=== PATIENT | female | born 1990 | race Caucasian/White ===

== ENCOUNTER 2024-04-09 08:19 | Outpatient (AMB) | payer OTHER, SELFPAY ==
--- NOTE | 2024-04-09 08:31 | A.OFFPC_ITS ---
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 Intake Note: New patient visit Medical Or Surgical Instrument Maker Required: No Is last menstrual period known: Yes Last menstrual period: 04/08/24 Allergies No Known Allergies Allergy (Verified 04/09/24 09:09) Medication List - Last Reconciled 04/09/24 by Johanna Rodriguez, CUT OFF [facility] [employer]- bupropion HCl XL 300 mg PO DAILY dextroamphetamine-amphetamine 25 mg ER 1 cap PO QAM Tobacco use date assessed: 04/09/24 Dental Screening Dental Screen Date: 04/09/24 Did you have a dental visit in the last 12 months?: Yes Did you have a dental problem in the last 6 months where you did not have access to dental care?: No Was dental information given to patient?: Patient has dentist HPI HPI Comments History of Present Illness Details 33 y/o F with eczema, ADHD, MDD, aniscor ia, keloid Right foot Surgery:None 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 Her ADHD and major depression is well controlled on bupropion and Adderall. She does need a counselor. She does not wear corrective lenses however reports anisocoria She is sleeping well. Maintaining a proper diet. Admits decreased physical activity since her move. Has a mole to her right upper quadrant that has grown in size of the last 3 years. Reports multiple angiomas on her face as well as scattered throughout her body that seemed to be more present over the last 2 years. Has a keloid on her right foot that was evaled by Derm in [place]. Her and has been trying to conceive. Unsuccessful for the last 1.5 years. She is active with android architect. Plan: Derm referral for eval of nevi RUQ Cont care with MAINTENANCE MECHANIC TECHNICIAN Screening labs today Cont meds; I will take over the refills on your current medications. FU in 3-4 months for ADHD MDD/med refills, sooner as needed. PFSH Medical History (Updated 04/09/24 @ 10:20 by Johanna Rodriguez [facility]) Eczema ADHD Family History (Updated 04/09/24 @ 08:38 by Saskia Shah [facility]) Mother HTN (hypertension) Ovarian cancer Father HTN (hypertension) Maternal Grandmother Diabetes Cardiovascular disease Maternal Grandfather Diabetes Paternal Grandfather Breast cancer Social History (Updated 04/09/24 @ 08:32 by Saskia Shah CMA) Housing: House Patient Tobacco Use Status: Never used Tobacco e-Cigarette/Vaping Use: Never Used Second Hand Smoke Exposure: No service: No Current occupational status: employed 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 1. Little interest or pleasure in doing things: not at all 2. Feeling down, depressed, or hopeless: several days 3. Trouble falling or staying asleep, or sleeping too much: not at all 4. Feeling tired or having little energy: several days 5. Poor appetite or overeating: several days 6. Feeling bad about yourself - or that you are a failure or have let yourself or your family down: several days 7. Trouble concentrating on things, such as reading the newspaper or watching television: several days 8. Moving or speaking so slowly that other people could have noticed. Or the opposite - being so fidgety or restless that you have been moving around a lot more than usual: not at all 9. Thoughts that you would be better off or of hurting yourself in some way: not at all Total score: 5 Depression Screening Interpretation: Positive Depression Screening Follow-up: Existing condition Depression Screening Done: Yes 61715 - PHQ-9 Billing: Yes Source: Developed by Drs. Isaac Naik, Deidra Barlow, Hardy Conteh and colleagues, with an educational ernesto from [employer]. Thrive Questionnaire Date Thrive assessed: 04/09/24 I am a: Patient What is your living situation today?: I have a steady place to live Within the past 12 months, did the food you bought not last and you didn't have the money to get more?: Never true Within the past 12 months, did you worry whether your food would run out before you got money to buy more?: Never true Do you have trouble paying for medicines?: No Do you have trouble getting transportation to medical appointments?: No Do you have trouble paying your heating and electricity bill?: No Do you have trouble taking care of your child, family member or friend?: No Do you have trouble with day-to-day activities such as bathing, preparing meals, shopping, managing finances, etc.?: No Are you currently unemployed and looking for a job?: No Are you interested in more education?: Yes Please select the resources that you would like help with: Education Currently or been in a relationship where the following occur: No concerns reported THRIVE Score: 0 AUDIT C Alcohol Use Questionnaire (AUDIT-C) 1. How often do you have a drink containing alcohol?: Monthly or less 2. How many drinks containing alcohol do you have on a typical day when you are drinking?: 1 or 2 3. How often do you have six or more drinks on one occasion?: Never Total Score: 1 Score Reviewed/Action Taken: Yes LASHELL-7 AMB Questionnaire LASHELL-7 Date LASHELL - 7 assessed: 04/09/24 Feeling nervous, anxious, or on edge: 1 = Several days Not being able to stop or control worryin = Not at all Worrying too much about different things: 0 = Not at all Trouble relaxin = Several days Being so restless that it is hard to sit still: 0 = Not at all Becoming easily annoyed or irritable: 1 = Several days Feeling afraid as if something awful might happen: 0 = Not at all Total LASHELL-7 score (0-4 normal; 5-9 mild; 10-14 moderate; 15-21 severe): 3 Source: Developed by Drs. Isaac Naik, Deidra Barlow, Hardy Conteh and colleagues, with an educational ernesto from [employer]. LASHELL-7 Assessment Billing LASHELL-7 Assessment Tool: LASHELL-7 Assessment 03685 Physical exam (Primary Care) Tobacco/Smoking Status: Tobacco use Status Tobacco use date assessed 04/09/24 04/09/24 08:33 Patient Tobacco Use Status Never used Tobacco 04/09/24 08:33 e-Cigarette/Vaping Use Never Used 04/09/24 08:33 Depression Screening Interpretation: Positive Depression Screening Follow-up: Existing condition Currently or been in a relationship where the following occur: No concerns reported Const Other: General: Well developed, well nourished, in no acute distress. Appears stated age. Head: Normocephalic, atraumatic. Eyes: Aniscoria R>L (congenital), otherwise normal reaction and accomodation, EOMI, Conjunctivae are clear. Vision grossly normal. Ears: TMs clear AU, EACS WNL Nose: Patent, without discharge. Mouth: There are no ulcers or lesions noted. No inflammation, no post nasal drip, no plaques nor exudates. Neck: Supple, no adenopathy or thyromegaly. Lungs: Clear to auscultation bilaterally. No rales, rhonchi or wheeze noted. Good air flow in all colón. Heart: Regular rate and rhythm. No murmurs, click, rubs or gallops are noted. Abdomen: Bowel sounds present in all quadrants. The abdomen is soft, nontender, with no masses or organomegaly noted. No hernias are noted. Musculoskeletal: Joints are nontender, without swelling, redness, or effusions. Range of motion is observed to be normal. Pulses: Peripheral pulses are equal and palpable bilaterally. Extremities: No clubbing, cyanosis nor edema is noted. Neurologic: Gait and station normal. Cranial Nerves 2-12 intact. Motor strength grossly symmetrical and intact. No sensory loss. Balance normal. Skin: No rashes, ulcers noted. Turgor is good. Skin color is good. Hair and nails are without abnormalities. RUQ flesh colored raised nevi, regular borders, oblong, scattered morales angiomas, round raised keloid dorsum R foot Psych: Normal eye contact, affect and mood appropriate, and normal interactions. Patient is alert and appropriate to context. Assessment and Plan Assessment & Plan (1) Encounter for general adult medical examination without abnormal findings: Code(s): Z00.00 - Encounter for general adult medical examination without abnormal findings (2) Laboratory examination ordered as part of a routine general medical examination: Code(s): Z00.00 - Encounter for general adult medical examination without abnormal findings (3) Atypical nevi: Comment: RUQ Code(s): D22.9 - Melanocytic nevi, unspecified (4) MDD (major depressive disorder), recurrent episode: Code(s): F33.9 - Major depressive disorder, recurrent, unspecified Qualifiers: Major depression episode severity: mild Qualified Code(s): F33.0 - Major depressive disorder, recurrent, mild (5) 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 Panel Today Z00.00 - Encounter for general adult medical examination without abnormal findings Microalbumin, Random (w Creat) Today Z00.00 - Encounter for general adult medical examination without abnormal findings LDL Cholesterol Direct Today Z00.00 - Encounter for general adult medical examination without abnormal findings Hemoglobin A1c Today Z00.00 - Encounter for general adult medical examination without abnormal findings TSH reflex Free T4 Today Z00.00 - Encounter for general adult medical examination without abnormal findings Vitamin D 25-OH Total Today Z00.00 - Encounter for general adult medical examination without abnormal findings Referrals Dermatology Referral D22.9 - Melanocytic nevi, unspecified Patient Instructions: Hemanth Fernandes [phone] Counselor call to schedule appt Walk-In Care (Urgent Care): We Make it Easy Walk-in for urgent medical issues such as: ? Seasonal Allergies ? Insect Bites ? Cough ? Diarrhea ? Acute Asthma Attacks ? Back, Knee or Joint Pain ? Ear Infection ? Fever without a Rash ? Headaches ? Nausea ? [place] [facility], Rash or Skin Irritation ? Sore Throat ? Sports Physicals ? Vomiting Most insurances are accepted. Patients do not need to be part of the [facility] to seek care at the walk-in clinic. Locations [facility] [address], [place] [address] ? [phone] [facility] in [place] provides services to ages 18 and over. Open Tuesday-Tuesday: 8 a.m. to 5 p.m. and Tuesday: 9 a.m. to 3 p.m.* *Hours may vary due to staffing availability. To confirm Walk-In Care hours in [place], please call [phone]. [address] [place] [address] ? [phone] [facility] in [place] provides services to ages 12 and over. Open Tuesday-Tuesday: 8 a.m. to 5 p.m. Hours may vary due to staffing availability. To confirm Walk-In Care hours in [place], please call [phone]. LABORATORY SERVICES: [facility] Lab ? Primary Location [address] [place] [address] Tuesday through Tuesday 6:00 AM ? 5:00 PM Tuesday 7:00 AM ? 11:00 AM* [phone] The [facility] Lab is centrally located near the front entrance of the [facility] for easy outpatient access. Convenient parking is provided for outpatients. *Hours may vary due to staffing availability. To confirm Laboratory hours for any location, please call [phone]. Offsite Location For your convenience, we offer offsite laboratory draw stations at the following locations: [address] [place] [address] ? [address], [address] Tuesday through Tuesday 7:30 AM ? 1:00 PM* [phone] *Hours may vary due to staffing availability. To confirm Laboratory hours for any location, please call [phone]. [place] ? [address] Tuesday through Tuesday 6:00 AM ? 3:30 PM* Tuesday 6:30 AM ? 3 PM* [phone] *Hours may vary due to staffing availability. To confirm Laboratory hours for any location, please call [phone] [place] [address] Tuesday through Tuesday 7:30 AM ? 4:00 PM* [phone] *Hours may vary due to staffing availability. To confirm Laboratory hours for any location, please call [phone] [place] [address] Tuesday through 9:00 AM ? 4:00 PM* *Hours may vary due to staffing availability. To confirm Laboratory hours for any location, please call [phone]. Appointments are not necessary. Walk-ins are welcome. Like all the departments throughout the [facility], our Lab undergoes frequent reviews to ensure the quality and accuracy of test results, and our staff takes special pride in its status as a nationally accredited facility. Patient Portal: ONE PATIENT. ONE RECORD. BETTER CARE. [facility] has a fully integrated, cutting- edge mobile electronic health information system that has revolutionized the way we care for our patients and manage our organization. This system improves communication and coordination enabling us to provide safe, higher-quality care, and an overall positive experience for staff and patients. Our first priority, as always, is to deliver the highest quality care possible. The system is running in the background supporting that priority. This portal is for all [facility] and [facility] services and practices. If you are experiencing any technical difficulties with enrolling or logging into the Patient Portal please complete the [facility] Patient Portal Technical Support Form. [facility] now offers a new secure on-line interactive tool for patients to review their health information ? ?Patient Portal. This interactive web portal will enable patients and their families to take an active role in their care by providing easy, secure access to their health information via the internet. The Patient Portal provides patients with instant access to their health information, including laboratory results, medications, allergies, demographic information, visit history, and more. In addition to managing their own care, parents and health care proxies with authorized consent will appreciate the ability to access the records of those individuals for whom they provide care. Please note: if you wish to gain access (Proxy) to another patient?s portal, you will be required to come to the Medical Records Department in person at [facility]. Both the patient giving proxy access and the proxy will need to provide photo identification and complete the appropriate authorization. The Patient Portal also allows track their appointments online. The [facility] Patient Portal also saves patients time by allowing them to submit updates to their demographic and contact information prior to their visits. Portal email notifications will also alert patients to any new activity on their portal, such as test results and new appointments. In order to initially enroll in the [facility] Patient Portal, you will need to enter some required information including the following: * your [facility] Medical Record number * your personal home email address * name * date of Please note: In order to enroll in the [facility] Patient Portal, we need to have your email address on file in your electronic medical record. ?The email address needs to be specific for one person (yourself) in order for your Portal enrollment to be successful. ?You can update your email address in person with our Registration staff when you are registering for a hospital visit. ?Otherwise, you will need to come to the Health Information Management (Medical Records) Department at [facility]. ?We are open from Tuesday ? Tuesday from 7:30 a.m. ? 4:30 p.m. ?You will be required to present a photo id. Once you have successfully enrolled in the Patient Portal, you will receive a one-time user id and password for the Portal, sent to your email address. ?This will allow you to log into the Patient Portal within 99 hrs and reset your own logon id and password, and define personal security questions. ?Once your permanent login and password have been set, you can log into the [facility] Patient Portal at any time via the blue button above or from the Portal Logon button on any page of the [facility] website. [facility] and [facility] encourage all of our patients to enroll in Patient Portal as it presents a valuable opportunity for patients and their families to actively participate in their care and stay healthy Welcome to [facility]. ?We look forward to working with you. Health screenings for women You should visit your health care provider from time to time, even if you are healthy. The purpose of these visits is to: Screen for medical issues Assess your risk for future medical problems Encourage a healthy lifestyle Update vaccinations and other preventive care services Help you get to know your provider in case of an illness Information Even if you feel fine, you should still see your provider for regular checkups. These visits can help you avoid problems in the future. For example, the only way to find out if you have high blood pressure is to have it checked regularly. High blood sugar and high cholesterol levels also may not have any symptoms in the early stages. A simple blood test can check for these conditions. There are specific times when you should see your provider or receive specific health screenings. The [place] Preventive Services Task Force publishes a list of recommended screenings. Below are screening guidelines for women ages 18 to 39. BLOOD PRESSURE SCREENING Your blood pressure should be checked at least once every 3 to 5 years if: Your blood pressure is in the normal range (top number less than 120 mm Hg and bottom number less than 80 mm Hg) You don't have risk factors for high blood pressure Ask your provider if you need your blood pressure checked more often if: The top number is 120 to 129 mm Hg or the bottom number is 70 to 79 mm Hg You have diabetes, heart disease, kidney problems, are overweight, or have certain other health conditions You have a first-degree relative with high blood pressure You are Black You had high blood pressure during a If the top number is 130 mm Hg or greater or the bottom number is 80 mm Hg or greater, this is considered stage 1 hypertension. Schedule an appointment with your provider to learn how you can reduce your blood pressure. Watch for blood pressure screenings in your area. Ask your provider if you can stop in to have your blood pressure checked. BREAST CANCER SCREENING Experts do not agree about the benefits of breast self-exams in finding breast cancer or saving lives. Talk to your provider about what is best for you. A screening mammogram is not recommended for most women under age 40. Your provider may discuss and recommend mammograms, MRI scans, or ultrasounds if you have an increased risk for breast cancer, such as: A mother or sister who had breast cancer at a young age (most often starting screening earlier than the age the close relative was diagnosed) You carry a high-risk genetic marker CERVICAL CANCER SCREENING Cervical cancer screening should start at age 21 years unless your provider advises otherwise. After the first test: Women ages 21 through 29 should have a Pap test every 3 years. Exoprts do not agree on whether HPV testing is recommended for this age group. Women ages 30 through 65 should be screened with either a Pap test every 3 years or the HPV test every 5 years or both tests every 5 years (called cotesting ). Women who have been treated for precancer (cervical dysplasia) should continue to have Pap tests for 20 years after treatment or until age 65, whichever is longer. If you have had your uterus and cervix removed (total hysterectomy), and you have not been diagnosed with cervical cancer or precancer (high grade cervical neoplasia), you do not need cervical cancer screening. CHOLESTEROL SCREENING Cholesterol screening should begin at: Age 45 for women with no known risk factors for coronary heart disease Age 20 for women with known risk factors for coronary heart disease Repeat cholesterol screening should take place: Every 5 years for women with normal cholesterol levels More often if changes occur in lifestyle (including weight gain and diet) More often if you have diabetes, heart disease, kidney problems, or certain other conditions DIABETES SCREENING You should be screened for diabetes starting at age 35 and then repeated every 3 years if you have no risk factors for diabetes. Screening may need to start earlier and be repeated more often if you have other risk factors for diabetes, such as: You have a first degree relative with diabetes. You are overweight or have obesity. You have high blood pressure, prediabetes, or a history of heart disease. Screening for diabetes should be done if you are planning to become and you are overweight and have other risk factors such as high blood pressure. DENTAL EXAM Go to the dentist once or twice every year for an exam and cleaning. Your dentist will evaluate if you need more frequent visits. EYE EXAM Have an eye exam every 5 to 10 years before age 40. If you have vision problems, have an eye exam every 2 years or more often if recommended by your provider. You should have an eye exam that includes an examination of your retina (back of your eye) at least every year if you have diabetes. IMMUNIZATIONS Commonly needed vaccines include: Flu shot: get one every year. COVID-19 vaccine: ask your provider what is best for you. Tetanus-diphtheria and acellular pertussis (Tdap) vaccine: have one at or after age 19 as one of your tetanus-diphtheria vaccines if you did not receive it as an adolescent. Tetanus-diphtheria: have a booster (or Tdap) every 10 years. Varicella vaccine: receive 2 doses if you never had chickenpox or the varicella vaccine. Hepatitis B vaccine: receive 2, 3, or 4 doses, depending on your exact circumstances. Measles, mumps, and rubella (MMR) vaccine: receive 1 to 2 doses if you are not already immune to MMR. Your provider can tell you if you are immune. Ask your provider about the human papillomavirus (HPV) vaccine if: You have not received the HPV vaccine in the past You have not completed the full vaccine series (you should catch up on this shot) Ask your provider if you should receive other immunizations if you have certain health problems that increase your risk for some diseases such as pneumonia. INFECTIOUS DISEASE SCREENING Women who are sexually active should be screened for chlamydia and gonorrhea up until age 25. Women 25 years and older should be screened for chlamydia and gonorrhea if at high risk. Screening for hepatitis C: All adults ages 18 to 79 should get a one-time test for hepatitis C. people should be screened at every . Screening for human immunodeficiency virus (HIV): All people ages 15 to 65 should get a one-time test for HIV. Depending on your lifestyle and medical history, you may also need to be screened for infections such as syphilis and HIV, as well as other infections. PHYSICAL EXAM All adults should visit their provider from time to time, even if they are healthy. The purpose of these visits is to: Screen for disease Assess your risk of future medical problems Encourage a healthy lifestyle Update your vaccinations and other preventive care services Maintain a relationship with a provider in case of an illness Your height, weight, and BMI should be checked at every exam. During your exam, your provider may ask you about: Depression and anxiety Diet and exercise Alcohol and tobacco use Safety issues, such as using seat belts, smoke detectors, and intimate partner violence Your medicines and risk for interactions SKIN SELF-EXAM Your provider may check your skin for signs of skin cancer, especially if you're at high risk, such as if you: Have had skin cancer before Have close relatives with skin cancer Have a weakened immune system OTHER SCREENING Talk with your provider about colon cancer screening if you have a strong family history of colon cancer or polyps, or if you have had inflammatory bowel disease or polyps yourself. Routine bone density screening of women under 40 is not recommended. 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
[2024-04-09 09:05] VITALS: BP 118/72; PULSE 100; RESP 12; TEMP 36.8; O2SAT 99; BMI 28.3
== END 2024-04-09 09:31 | disposition home or self-care (01) ==
PROVIDERS: PCP Hospitalist; Visit Provider Nurse Practitioner Family
DX: Z00.00 Encounter for general adult medical examination without abnormal findings (principal); D22.9 Melanocytic nevi, unspecified; F33.0 Major depressive disorder, recurrent, mild; Q13.2 Other congenital malformations of iris
CPT/HCPCS: 99385

== ENCOUNTER 2024-04-09 09:47 | Outpatient (REF) | payer OTHER, SELFPAY ==
[2024-04-09 11:30] LABS: Estimated Average Glucose 91 mg/dL; Hemoglobin A1c % 4.8 % (<6.0)
[2024-04-09 11:38] LABS: Alanine Aminotransferase 23 U/L (0-31); Albumin Level 4.7 g/dL (3.5-5.0); Alkaline Phosphatase 65 U/L (39-117); Anion Gap 13 (12-20); Aspartate Amino Transferase 21 U/L (5-31); Bilirubin Total 0.6 mg/dL (0.0-1.0); Blood Urea Nitrogen 15 mg/dL (9-16); Calcium 9.7 mg/dL (8.4-10.2); Carbon Dioxide 26 mmol/L (22-29); Chloride 103 mmol/L (96-108); Estimated Glomerular Filt Rate > 60; Glucose Random 94 mg/dL (60-115); Potassium 3.9 mmol/L (3.3-5.1); Sodium 138 mmol/L (135-145); Total Protein 7.1 g/dL (6.5-8.0)
[2024-04-09 11:50] LABS: Creatinine Urine 201.77 mg/dL; Microalbum/Creatinine Ratio Ur 10.9 ug/mg cr (<30)
[2024-04-09 11:56] LABS: Vitamin D 25-OH Total 44.4 ng/mL (>30)
[2024-04-10 13:54] LABS: LDL Cholesterol Direct 90 mg/dL (<100)
== END 2024-04-09 09:48 | disposition home or self-care (01) ==
LOC: HO.WFDLDS 09:47
PROVIDERS: Visit Provider Nurse Practitioner Family
DX: Z00.00 Encounter for general adult medical examination without abnormal findings (principal); Z13.1 Encounter for screening for diabetes mellitus; Z13.89 Encounter for screening for other disorder
CPT/HCPCS: 36415; 80053; 82043; 82306; 82570; 83036; 83721; 84443

== ENCOUNTER 2024-07-10 08:27 | Outpatient (AMB) | payer OTHER, SELFPAY ==
--- NOTE | 2024-07-10 08:36 | A.OFFPC_ITS ---
Vital Signs 07/10/24 08:38 Height 5 ft 6 in Weight 161 lb 4 oz BMI 26.0 BP 118/70 Blood Pressure Location Lt brachial Position Sitting Respiration 14 Pulse 71 Pulse Source Pulse Oximeter Pulse Oximetry (%) 98 Oxygen Delivery Method Room Air Intake Visit Reasons: 3-4 months fu ADHD MDD Intake Note: follow up on adhd meds Allergies No Known Allergies Allergy (Verified 07/10/24 08:50) Medication List - Last Reconciled 07/10/24 by ZOE Oconnor bupropion HCl XL 300 mg PO DAILY 90 days dextroamphetamine-amphetamine 25 mg ER 1 cap PO QAM dextroamphetamine-amphetamine 5 mg 1 tab PO DAILY Tobacco use date assessed: 04/09/24 Dental Screening Dental Screen Date: 04/09/24 HPI HPI Comments History of Present Illness Details 33 y/o F with eczema, ADHD, MDD, aniscor ia, keloid Right foot Surgery:None 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 ADHD symptoms are well controlled on current medications. Her appetite is good. Weight is stable. Sleeping well. Denies any abdominal pain or palpitations. MDD symptoms are stable. She is currently undergoing infertility treatment. Recently had an appointment, told everything looks good so far, we will need to undergo further testing. She also has returned to school with a goal to be, ENVIRONMENTAL MANAGEMENT SPECIALIST. Despite this, she feels like she has a good support system and is doing well on bupropion. Derm - I do not have a consult note however she reports that she did see Dermatology and mole is fine. Exam: Awake alert NAD Aniscoria R>L (congenital) RRR LS CTAB WT is stable. VS reviewed today. Today is more accurate. Plan: Continue all medications as currently prescribed. She does have an Adderall 5 mg IR that she takes as needed in the afternoon on days that she works. She does not currently need this refilled. Return to the office in 3 months for med check and refill, sooner as needed Patient is aware they are being prescribed a controlled substance. They were educated that this medication does require routine monthly office visits to monitor weight, blood pressure, heart rate and to screen for any signs of abuse or misuse. They were educated that they may be subject to random pill counts and/or U tox screenings. The prescription drug monitoring program we will be monitored at each visit to further screen for signs of abuse or misuse to inc lude filling prescriptions at other physician's offices. The patient should maintain prescription refills of the same local pharmacy and advised the provider of any changes immediately. If at any time there is a concern for abuse or misuse or if there are any signs of side effects such as elevated blood pressure, elevated heart rate or weight loss patient is made aware that this medication will be discontinued. The patient is aware of the above and is willing to proceed. This note is constructed using voice recognition software. While every effort has been made to ensure accuracy in newspaper copy editor, still errors may have been included Sometimes, these errors may affect the content or meaning of the given sentence . Total time spent caring for the patient today was 30 minutes. This includes time spent before the visit reviewing the chart, time spent during the visit, and time spent after the visit on documentation PFSH Medical History (Updated 07/10/24 @ 09:03 by Johanna Rodriguez [facility]) Eczema ADHD Family History (Updated 04/09/24 @ 08:38 by Saskia Shah CMA) Mother HTN (hypertension) Ovarian cancer Father HTN (hypertension) Maternal Grandmother Diabetes Cardiovascular disease Maternal Grandfather Diabetes Paternal Grandfather Breast cancer Social History (Updated 04/09/24 @ 08:32 by Saskia Shah CMA) Housing: House Patient Tobacco Use Status: Never used Tobacco e-Cigarette/Vaping Use: Never Used Second Hand Smoke Exposure: No service: No Current occupational status: employed 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 1. Little interest or pleasure in doing things: several days 2. Feeling down, depressed, or hopeless: several days 3. Trouble falling or staying asleep, or sleeping too much: not at all 4. Feeling tired or having little energy: several days 5. Poor appetite or overeating: not at all 6. Feeling bad about yourself - or that you are a failure or have let yourself or your family down: several days 7. Trouble concentrating on things, such as reading the newspaper or watching television: several days 8. Moving or speaking so slowly that other people could have noticed. Or the opposite - being so fidgety or restless that you have been moving around a lot more than usual: not at all 9. Thoughts that you would be better off or of hurting yourself in some way: not at all Total score: 5 16723 - PHQ-9 Billing: Yes Source: Developed by Drs. Isaac Naik, Deidra Barlow, Hardy Conteh and colleagues, with an educational ernesto from [employer]. Thrive Questionnaire Date Thrive assessed: 07/10/24 I am a: Patient What is your living situation today?: I have a steady place to live Within the past 12 months, did the food you bought not last and you didn't have the money to get more?: Never true Within the past 12 months, did you worry whether your food would run out before you got money to buy more?: Never true Do you have trouble paying for medicines?: No Do you have trouble getting transportation to medical appointments?: No Do you have trouble paying your heating and electricity bill?: No Do you have trouble taking care of your child, family member or friend?: No Do you have trouble with day-to-day activities such as bathing, preparing meals, shopping, managing finances, etc.?: No Are you currently unemployed and looking for a job?: No Are you interested in more education?: Yes Please select the resources that you would like help with: None Currently or been in a relationship where the following occur: No concerns reported THRIVE Score: 0 AUDIT C Alcohol Use Questionnaire (AUDIT-C) 1. How often do you have a drink containing alcohol?: 2-4 times a month 2. How many drinks containing alcohol do you have on a typical day when you are drinking?: 1 or 2 3. How often do you have six or more drinks on one occasion?: Never Total Score: 2 LASHELL-7 AMB Questionnaire LASHELL-7 Date LASHELL - 7 assessed: 07/10/24 Feeling nervous, anxious, or on edge: 1 = Several days Not being able to stop or control worryin = Several days Worrying too much about different things: 1 = Several days Trouble relaxin = Several days Being so restless that it is hard to sit still: 0 = Not at all Becoming easily annoyed or irritable: 1 = Several days Feeling afraid as if something awful might happen: 1 = Several days Total LASHELL-7 score (0-4 normal; 5-9 mild; 10-14 moderate; 15-21 severe): 6 Source: Developed by Drs. Isaac Naik, Deidra Barlow, Hardy Conteh and colleagues, with an educational ernesto from [employer]. LASHELL-7 Assessment Billing LASHELL-7 Assessment Tool: LASHELL-7 Assessment 86574 Physical exam (Primary Care) Vital Signs: Last Vital Signs Pulse 71 07/10/24 08:38 Resp 14 07/10/24 08:38 BP 118/70 07/10/24 08:38 Pulse Ox 98 07/10/24 08:38 Oxygen Delivery Method Room Air 07/10/24 08:38 BMI result Body Mass Index 26.0 Tobacco/Smoking Status: Tobacco use Status Tobacco use date assessed 04/09/24 07/10/24 08:40 Patient Tobacco Use Status Never used Tobacco 07/10/24 08:40 e-Cigarette/Vaping Use Never Used 07/10/24 08:40 PHQ-9: PHQ-9 Score PHQ-9: Total score 5 07/10/24 08:40 Thrive Assessment: Date of Thrive Assessment Date Thrive assessed 07/10/24 07/10/24 08:40 Currently or been in a relationship where the following occur: No concerns reported Coding Level of Care Code Est Pt Level 4 (58377) Complex EM visit Add On G2211 Diagnoses Attention deficit hyperactivity disorder (ADHD), predominantly inattentive type F90.0 Attention deficit-hyperactivity disorder type: predominantly inattentive Mild episode of recurrent major depressive disorder F33.0 Major depression episode severity: mild Atypical nevi D22.9 Additional Codes LASHELL-7 Assessment Billing - LASHELL-7 Assessment Tool: LASHELL-7 Assessment 88932 ([id number]) Assessment & Plan Assessment & Plan (1) ADHD: Comment: . Code(s): F90.9 - Attention-deficit hyperactivity disorder, unspecified type Category: Medical Qualifiers: Attention deficit-hyperactivity disorder type: predominantly inattentive Qualified Code(s): F90.0 - Attention-deficit hyperactivity disorder, predominantly inattentive type Plan: . (2) MDD (major depressive disorder), recurrent episode: Code(s): F33.9 - Major depressive disorder, recurrent, unspecified Category: Medical Qualifiers: Major depression episode severity: mild Qualified Code(s): F33.0 - Major depressive disorder, recurrent, mild Plan: . (3) Atypical nevi: Comment: RUQ - Tatum Derm bx negative. FU PRN Code(s): D22.9 - Melanocytic nevi, unspecified Category: Medical Plan: . Plan . Medications: Refilled bupropion HCl XL 300 mg PO DAILY 90 days 90 tabs 2RF dextroamphetamine-amphetamine 25 mg ER CAPSULES OR TABS, WHATEVER IS AVAILABLE 1 cap PO QAM 30 caps 0RF
[2024-07-10 08:38] VITALS: BP 118/70; PULSE 71; RESP 14; O2SAT 98; BMI 26.0
== END 2024-07-10 09:03 | disposition home or self-care (01) ==
PROVIDERS: PCP Nurse Practitioner Family; Visit Provider Nurse Practitioner Family
DX: F90.0 Attention-deficit hyperactivity disorder, predominantly inattentive type (principal); F33.0 Major depressive disorder, recurrent, mild; D22.9 Melanocytic nevi, unspecified

== ENCOUNTER → 2024-07-10 08:27 | Outpatient (BNVA) | payer OTHER, SELFPAY | PROVIDERS: PCP Nurse Practitioner Family; Visit Provider Nurse Practitioner Family | DX: F90.0 Attention-deficit hyperactivity disorder, predominantly inattentive type (principal); F33.0 Major depressive disorder, recurrent, mild; D22.9 Melanocytic nevi, unspecified | CPT/HCPCS: 96127 ==

== ENCOUNTER 2024-10-10 08:27 | Outpatient (AMB) | payer OTHER, SELFPAY ==
--- NOTE | 2024-10-10 08:39 | MHC.PC.OV ---
Vital Signs 10/10/24 08:40 Height 5 ft 6 in Weight 161 lb 2 oz BMI 26.0 BP 112/74 Blood Pressure Location Rt brachial Position Sitting Pulse 87 Pulse Source Pulse Oximeter Pulse Oximetry (%) 97 Oxygen Delivery Method Room Air Intake Visit Reasons: fu MDD ADHD Intake Note: Follow. Getting bloody noses every day. Requesting ENT. 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 Counselor garima [place]brook PRN Here today to fu on ADHD and MDD She reports an improvement in her mental health symptoms with the current medication regimen and confirms adherence to the treatment plan. She mentions ongoing stress related to fertility issues, which she describes as the primary stressor currently. The patient's and parents provide a supportive environment. She has not engaged in counseling recently, although she acknowledges its importance and has prioritized reinitiating it, considering options like a support group offered by an IVF clinic. Sleeping well. Eating well. Wt Stable. The patient reports worsening of frequent nose bleeds (epistaxis), notably experiencing them once to twice daily since returning to mask-wearing at work. She previously consulted an ENT in [place] for the same issue without resolution but intends to seek further specialist care to address the problem, which she finds disruptive. Social History - Patient is and reports her is supportive. - She recently completed a chemistry class and is preparing for the GRE examination. - Plans to engage in a support group or counseling related to fertility stress. Exam: Awake alert NAD Aniscoria R>L (congenital) RRR LS CTAB Mood and affect appropriate WT is stable. VS reviewed today. Plan - Continue current medication regimen - Address recurrent epistaxis with an ENT referral in the [place] area if covered by insurance or consider [facility] for accessibility. - Encourage participation in a counseling or support group related to fertility stress as a psycho-social support measure. - Cont care w/ fertility specialists Patient was informed and verbally consented to the use of an ambient scribe for clinic note documentation during this visit. Discussion Notes During the visit, we reviewed the management plan for her major depressive disorder and ADHD, confirming the efficacy of her current medications without any need for adjustments. I highlighted the importance of psycho-social support for her fertility-related stress and recommended exploration of counseling or support groups, especially those affiliated with her IVF clinic, which may provide better support. We also discussed the plan to manage her recurrent epistaxis by referring her to an ENT specialist, taking into account insurance coverage limitations. Follow-up was agreed upon to be in three months or sooner if necessary. Patient Instructions - Continue taking prescribed medications for depression, anxiety, and ADHD. - Explore and join a support group or initiate counseling sessions. - Monitor epistaxis; follow through with ENT referral recommendations. - Return for follow-up in three months for routine fu ADHD, MDD unless earlier assessment is necessary. - Maintain an updated communication with the portal for referrals and any changes in condition. Total time spent caring for the patient today was 30 minutes. This includes time spent before the visit reviewing the chart, time spent during the visit, and time spent after the visit on documentation, reviewing laboratory results, diagnostic imaging, medications, performing a medically necessary evaluation, counseling on diagnoses, care coordination, ordering appropriate tests, ordering appropriate medications, review of tests performed by other providers, reporting test results with the patient, communication with other healthcare providers. PFSH Medical History (Updated 10/10/24 @ 08:57 by Johanna Rodriguez, [facility]) Eczema ADHD Family History (Updated 04/09/24 @ 08:38 by Saskia Shah CMA) Mother HTN (hypertension) Ovarian cancer Father HTN (hypertension) Maternal Grandmother Diabetes Cardiovascular disease Maternal Grandfather Diabetes Paternal Grandfather Breast cancer Social History (Updated 04/09/24 @ 08:32 by Saskia Shah CMA) Housing: House Alcohol intake: current Patient Tobacco Use Status: Never used Tobacco e-Cigarette/Vaping Use: Never Used Second Hand Smoke Exposure: No service: No Current occupational status: employed 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 1. Little interest or pleasure in doing things: not at all 2. Feeling down, depressed, or hopeless: several days 3. Trouble falling or staying asleep, or sleeping too much: several days 4. Feeling tired or having little energy: several days 5. Poor appetite or overeating: several days 6. Feeling bad about yourself - or that you are a failure or have let yourself or your family down: several days 7. Trouble concentrating on things, such as reading the newspaper or watching television: not at all 8. Moving or speaking so slowly that other people could have noticed. Or the opposite - being so fidgety or restless that you have been moving around a lot more than usual: not at all 9. Thoughts that you would be better off or of hurting yourself in some way: not at all Total score: 5 Depression Screening Interpretation: Positive Depression Screening Follow-up: Existing condition and In treatment Depression Screening Done: Yes 44871 - PHQ-9 Billing: Yes Source: Developed by Drs. Isaac Naik, Deidra Barlow, Hardy Conteh and colleagues, with an educational ernesto from [employer]. Thrive Questionnaire Date Thrive assessed: 10/10/24 I am a: Patient What is your living situation today?: I have a steady place to live Within the past 12 months, did the food you bought not last and you didn't have the money to get more?: Never true Within the past 12 months, did you worry whether your food would run out before you got money to buy more?: Never true Do you have trouble paying for medicines?: No Do you have trouble getting transportation to medical appointments?: No Do you have trouble paying your heating and electricity bill?: No Do you have trouble taking care of your child, family member or friend?: No Do you have trouble with day-to-day activities such as bathing, preparing meals, shopping, managing finances, etc.?: No Are you currently unemployed and looking for a job?: No Are you interested in more education?: No Please select the resources that you would like help with: None Currently or been in a relationship where the following occur: No concerns reported THRIVE Score: 0 AUDIT C Alcohol Use Questionnaire (AUDIT-C) 1. How often do you have a drink containing alcohol?: Monthly or less 2. How many drinks containing alcohol do you have on a typical day when you are drinking?: 1 or 2 3. How often do you have six or more drinks on one occasion?: Never Total Score: 1 Score Reviewed/Action Taken: Yes LASHELL-7 AMB Questionnaire LASHELL-7 Date LASHELL - 7 assessed: 10/10/24 Feeling nervous, anxious, or on edge: 1 = Several days Not being able to stop or control worryin = Several days Worrying too much about different things: 0 = Not at all Trouble relaxin = Several days Being so restless that it is hard to sit still: 0 = Not at all Becoming easily annoyed or irritable: 1 = Several days Feeling afraid as if something awful might happen: 0 = Not at all Total LASHELL-7 score (0-4 normal; 5-9 mild; 10-14 moderate; 15-21 severe): 4 Source: Developed by Drs. Isaac Naik, Deidra Barlow, Hardy Conteh and colleagues, with an educational ernesto from [employer]. LASHELL-7 Assessment Billing LASHELL-7 Assessment Tool: LASHELL-7 Assessment 21234 Physical exam (Primary Care) Vital Signs: Last Vital Signs Pulse 87 10/10/24 08:40 BP 112/74 10/10/24 08:40 Pulse Ox 97 10/10/24 08:40 Oxygen Delivery Method Room Air 10/10/24 08:40 BMI result Body Mass Index 26.0 Tobacco/Smoking Status: Tobacco use Status Tobacco use date assessed 04/09/24 10/10/24 08:45 Patient Tobacco Use Status Never used Tobacco 10/10/24 08:45 e-Cigarette/Vaping Use Never Used 10/10/24 08:45 PHQ-9: PHQ-9 Score PHQ-9: Total score 5 10/10/24 08:45 Depression Screening Interpretation: Positive Depression Screening Follow-up: Existing condition and In treatment Thrive Assessment: Date of Thrive Assessment Date Thrive assessed 07/10/24 10/10/24 08:45 Currently or been in a relationship where the following occur: No concerns reported Coding Level of Care Code Est Pt Level 4 (50205) Complex EM visit Add On G2211 Diagnoses Attention deficit hyperactivity disorder (ADHD), predominantly inattentive type F90.0 Attention deficit-hyperactivity disorder type: predominantly inattentive Mild episode of recurrent major depressive disorder F33.0 Major depression episode severity: mild Epistaxis R04.0 Infertility, female N97.9 Additional Codes PHQ-9 - 55633 - PHQ-9 Billing: Yes ([id number]) LASHELL-7 Assessment Billing - LASHELL-7 Assessment Tool: LASHELL-7 Assessment 34623 ([id number]) Assessment & Plan Assessment & Plan (1) ADHD: Comment: . Code(s): F90.9 - Attention-deficit hyperactivity disorder, unspecified type Category: Medical Qualifiers: Attention deficit-hyperactivity disorder type: predominantly inattentive Qualified Code(s): F90.0 - Attention-deficit hyperactivity disorder, predominantly inattentive type (2) MDD (major depressive disorder), recurrent episode: Code(s): F33.9 - Major depressive disorder, recurrent, unspecified Category: Medical Qualifiers: Major depression episode severity: mild Qualified Code(s): F33.0 - Major depressive disorder, recurrent, mild (3) Epistaxis: Code(s): R04.0 - Epistaxis Category: Medical (4) Infertility, female: Code(s): N97.9 - Female infertility, unspecified Category: Medical Plan . Orders: Referrals Ear/Nose/Throat Referral R04.0 - Epistaxis Patient Instructions: [phone] CT ENT
[2024-10-10 08:40] VITALS: BP 112/74; PULSE 87; O2SAT 97; BMI 26.0
== END 2024-10-10 08:58 | disposition home or self-care (01) ==
PROVIDERS: PCP Nurse Practitioner Family; Visit Provider Nurse Practitioner Family
DX: R04.0 Epistaxis (principal); F90.0 Attention-deficit hyperactivity disorder, predominantly inattentive type; F33.0 Major depressive disorder, recurrent, mild; N97.9 Female infertility, unspecified

== ENCOUNTER → 2024-10-10 08:27 | Outpatient (BNVA) | payer OTHER, SELFPAY | PROVIDERS: PCP Nurse Practitioner Family; Visit Provider Nurse Practitioner Family | DX: F90.0 Attention-deficit hyperactivity disorder, predominantly inattentive type (principal); F33.0 Major depressive disorder, recurrent, mild; R04.0 Epistaxis; N97.9 Female infertility, unspecified | CPT/HCPCS: 96127 ==

== ENCOUNTER 2025-01-03 08:58 | Outpatient (AMB) | payer OTHER, SELFPAY ==
--- NOTE | 2025-01-03 08:59 | A.OFFPC_ITS ---
Vital Signs 01/03/25 09:02 Height 5 ft 6 in Weight 162 lb BMI 26.1 BP 118/68 Blood Pressure Location Lt brachial Position Sitting Respiration 12 Pulse 79 Pulse Source Pulse Oximeter Temp 97.5 F Temp Source Oral Pulse Oximetry (%) 99 Oxygen Delivery Method Room Air Intake Visit Reasons: 3 months med check Intake Note: Follow up med check Profiler Required: No Allergies No Known Allergies Allergy (Verified 01/03/25 09:31) Medication List - Last Reconciled 01/03/25 by IBETH Oconnor- bupropion HCl XL 300 mg PO DAILY 90 days dextroamphetamine-amphetamine 25 mg ER (Adderall XR) 1 cap PO QAM dextroamphetamine-amphetamine 5 mg 1 tab PO DAILY Tobacco use date assessed: 01/03/25 Dental Screening Dental Screen Date: 01/03/25 Did you have a dental visit in the last 12 months?: Yes Did you have a dental problem in the last 6 months where you did not have access to dental care?: No Was dental information given to patient?: Patient has dentist HPI HPI Comments History of Present Illness Details 34 y/o F with eczema, ADHD, MDD, aniscor ia, keloid Right foot Surgery:None 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 - She is engaged in telehealth therapy t wice so far and finds it effective and convenient. - Her mood is stable though she notes st ress related to GRE preparation. - Pertaining to infertility, she experie nced emotional distress after a consultation at [facility] and is hesitant about returning, fearing the outcome of an ultrasound. - Her history of traumatic responses to pelvic procedures contributes to this hesitancy. - The patient is maintained on bupropion 300mg daily with satisfactory therapeutic effect. - She reports weekly episodes of epistax is, which have decreased in frequency since discontinuing mask use at work. ENT referral in place. 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 VS reviewed today. Discussion Notes During today's visit, I reviewed the patient's ongoing management of ADHD and MDD, including her current medication regimen of bupropion 300 mg daily, which remains effective. We discussed her continued engagement in telehealth therapy sessions and the benefits she has experienced. With regards to infertility, she shared her emotional struggles with past consultations and her hesitancy about returning to [facility], particularly fearing the outcomes of an ultrasound. I emphasized the importance of feeling comfortable with her healthcare provider and discussed alternative options. She reported ongoing issues with recurrent epistaxis but has noted improvement since the relaxation of mask-wearing protocols, identifying them as potential triggers. I proposed Ativan to manage anxiety if she proceeds with any future procedures but left the decision to her comfort level. 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 I encouraged her to reach out if she needs any further support, medical adjustments, or if her situation changes. Assessment and Plan 1. Attention Deficit Hyperactivity Disor linda (ADHD) The patient is well maintained on current therapy; showing good compliance and response. Continuation of current dosing is recommended without changes. No refills needed. 2. Major Depressive Disorder (MDD) The patient's depressive symptoms are stable with ongoing medication and therapy. Continuation of current therapeutic measures is advised with ongoing monitoring. 3. Infertility The patient reports emotional distress with previous fertility care. Emphasis on ensuring comfort with providers and exploring viable local options is discussed. She is encouraged to remain open to mental health support during fertility evaluations. 4. Recurrent Epistaxis The reduction in epistaxis noted with environmental modifications. Monitoring to continue, ENT referral in place. Patient Instructions - Continue taking all meds as prescribed . - Engage in regular therapy sessions and maintain treatment adherence. - Consider discussing infertility at com fortable intervals and seek mental health support if needed. - Monitor nosebleeds and seek further ev aluation if symptoms continue or worsen. - Reach out via patient portal for medic ation refills or any concerns. RTO March CPE sooner PRN Consent Patient was informed and verbally consented to the use of an ambient scribe for clinic note documentation during this visit. Total time spent caring for the patient today was 30 minutes. This includes time spent before the visit reviewing the chart, time spent during the visit, and time spent after the visit on documentation, reviewing laboratory results, diagnostic imaging, medications, performing a medically necessary evaluation, counseling on diagnoses, care coordination, ordering appropriate tests, ordering appropriate medications, review of tests performed by other providers, reporting test results with the patient, communication with other healthcare providers. 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 1. Little interest or pleasure in doing things: not at all 2. Feeling down, depressed, or hopeless: not at all 3. Trouble falling or staying asleep, or sleeping too much: not at all 4. Feeling tired or having little energy: not at all 5. Poor appetite or overeating: not at all 6. Feeling bad about yourself - or that you are a failure or have let yourself or your family down: not at all 7. Trouble concentrating on things, such as reading the newspaper or watching television: not at all 8. Moving or speaking so slowly that other people could have noticed. Or the opposite - being so fidgety or restless that you have been moving around a lot more than usual: not at all 9. Thoughts that you would be better off or of hurting yourself in some way: not at all Total score: 0 Depression Screening Interpretation: Negative Depression Screening Done: Yes 91007 - PHQ-9 Billing: Yes Source: Developed by Drs. Isaac Naik, Deidra Barlow, Hardy Conteh and colleagues, with an educational ernesto from [employer]. Thrive Questionnaire Date Thrive assessed: 01/03/25 I am a: Patient What is your living situation today?: I have a steady place to live Within the past 12 months, did the food you bought not last and you didn't have the money to get more?: Never true Within the past 12 months, did you worry whether your food would run out before you got money to buy more?: Never true Do you have trouble paying for medicines?: No Do you have trouble getting transportation to medical appointments?: No Do you have trouble paying your heating and electricity bill?: No Do you have trouble taking care of your child, family member or friend?: No Do you have trouble with day-to-day activities such as bathing, preparing meals, shopping, managing finances, etc.?: No Are you currently unemployed and looking for a job?: No Are you interested in more education?: No Please select the resources that you would like help with: None Currently or been in a relationship where the following occur: No concerns reported THRIVE Score: 0 AUDIT C Alcohol Use Questionnaire (AUDIT-C) 1. How often do you have a drink containing alcohol?: Never 2. How many drinks containing alcohol do you have on a typical day when you are drinking?: 1 or 2 3. How often do you have six or more drinks on one occasion?: Never Total Score: 0 Score Reviewed/Action Taken: Yes LASHELL-7 AMB Questionnaire LASHELL-7 Date LASHELL - 7 assessed: 01/03/25 Feeling nervous, anxious, or on edge: 0 = Not at all Not being able to stop or control worryin = Not at all Worrying too much about different things: 0 = Not at all Trouble relaxin = Not at all Being so restless that it is hard to sit still: 0 = Not at all Becoming easily annoyed or irritable: 0 = Not at all Feeling afraid as if something awful might happen: 0 = Not at all Total LASHELL-7 score (0-4 normal; 5-9 mild; 10-14 moderate; 15-21 severe): 0 Source: Developed by Drs. Isaac Naik, Deidra Barlow, Hardy Conteh and colleagues, with an educational ernesto from [employer]. LASHELL-7 Assessment Billing LASHELL-7 Assessment Tool: LASHELL-7 Assessment 56437 Physical exam (Primary Care) Vital Signs: Last Vital Signs Temp 97.5 F 01/03/25 09:02 Pulse 79 01/03/25 09:02 Resp 12 01/03/25 09:02 BP 118/68 01/03/25 09:02 Pulse Ox 99 01/03/25 09:02 Oxygen Delivery Method Room Air 01/03/25 09:02 BMI result Body Mass Index 26.1 Tobacco/Smoking Status: Tobacco use Status Tobacco use date assessed 01/03/25 01/03/25 09:04 Patient Tobacco Use Status Never used Tobacco 01/03/25 09:04 e-Cigarette/Vaping Use Never Used 01/03/25 09:04 PHQ-9: PHQ-9 Score PHQ-9: Total score 0 01/03/25 09:28 Depression Screening Interpretation: Negative Thrive Assessment: Date of Thrive Assessment Date Thrive assessed 01/03/25 01/03/25 09:04 Currently or been in a relationship where the following occur: No concerns r eported Coding Level of Care Code Est Pt Level 4 (43904) Complex EM visit Add On G2211 Diagnoses Attention deficit hyperactivity disorder (ADHD), predominantly inattentive type F90.0 Attention deficit-hyperactivity disorder type: predominantly inattentive Bipolar 2 disorder F31.81 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
[2025-01-03 09:02] VITALS: BP 118/68; PULSE 79; RESP 12; TEMP 36.4; O2SAT 99; BMI 26.1
== END 2025-01-03 09:38 | disposition home or self-care (01) ==
LOC: HO.HMCFM 08:58
PROVIDERS: PCP Nurse Practitioner Family; Visit Provider Nurse Practitioner Family
DX: F90.0 Attention-deficit hyperactivity disorder, predominantly inattentive type (principal); F31.81 Bipolar II disorder; Q13.2 Other congenital malformations of iris; R04.0 Epistaxis; N97.9 Female infertility, unspecified

== ENCOUNTER → 2025-01-03 08:58 | Outpatient (BNVA) | payer OTHER, SELFPAY | PROVIDERS: PCP Nurse Practitioner Family; Visit Provider Nurse Practitioner Family | DX: F90.0 Attention-deficit hyperactivity disorder, predominantly inattentive type (principal); F31.81 Bipolar II disorder; R04.0 Epistaxis; F33.0 Major depressive disorder, recurrent, mild; N97.9 Female infertility, unspecified; Q13.2 Other congenital malformations of iris; Z79.899 Other long term (current) drug therapy | CPT/HCPCS: 96127 ==

== ENCOUNTER 2025-04-25 07:54 | Outpatient (AMB) | payer OTHER, SELFPAY ==
--- NOTE | 2025-04-25 07:56 | A.OFFPC_ITS ---
Vital Signs 04/25/25 07:59 Height 5 ft 6 in Weight 162 lb 4 oz BMI 26.2 BP 122/70 Blood Pressure Location Lt brachial Position Sitting Respiration 12 Pulse 81 Pulse Source Pulse Oximeter Temp 97.2 F Temp Source Oral Pulse Oximetry (%) 98 Oxygen Delivery Method Simple Mask Intake Visit Reasons: March CPE Intake Note: CPE Active Directory Systems Administrator Required: No Allergies No Known Allergies Allergy (Verified 04/25/25 08:03) Medication List - Last Reconciled 04/25/25 by IBETH Oconnor- bupropion HCl XL 300 mg PO DAILY 90 days dextroamphetamine-amphetamine 25 mg ER (Adderall XR) 1 cap PO QAM dextroamphetamine-amphetamine 5 mg 1 tab PO DAILY Tobacco use date assessed: 04/25/25 Dental Screening Dental Screen Date: 04/25/25 Did you have a dental visit in the last 12 months?: Yes Did you have a dental problem in the last 6 months where you did not have access to dental care?: No Was dental information given to patient?: Patient has dentist HPI HPI Comments History of Present Illness Details 34 y/o F with eczema, ADHD, MDD, aniscor ia, keloid Right foot, Bipolar, Infertility Surgery:None 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 - Medical history includes ADHD and bipo lar disorder, treated with bupropion and Adderall. 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 - History of eczema without current exa cerbations. - Nosebleeds have ceased - Infertility tx on hold at this time ; will resume in June - Has mild cold sx today, started 4 days ago, no concerns. - No new medication allergies, surgeries , or family history changes reported. Review of Systems - General: Reports feeling well; denies any new symptoms. - Eyes: Denies changes in vision. - ENT: Denies nosebleeds since previous incidents resolved. - Dermatology: No current skin issues re ported. - Hematologic: Denies unusual bleeding o r tenderness. Physical Exam General: Well developed, well nourished, in no acute distress. Appears stated age. Head: Normocephalic, atraumatic. 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 Vision grossly normal. No changes in vision noted. Ears: TMs clear AU, EACS WNL Nose: Patent, without discharge. Neck: Supple, no adenopathy or thyromegaly. Breast: Edu on SBE. Patient is doing self breast exams. Lungs: Clear to auscultation bilaterally. No rales, rhonchi or wheeze noted. Good air flow in all colón. Heart: Regular rate and rhythm. No murmurs, click, rubs or gallops are noted. Abdomen: Bowel sounds present in all quadrants. The abdomen is soft, nontender, with no masses or organomegaly noted. No hernias are noted. : Deferred. Reviewed recommendations for routine DIRECTOR OF BILLING. Pulses: Peripheral pulses are equal and palpable bilaterally. Extremities: No clubbing, cyanosis nor edema is noted. Neurologic: Gait and station normal. Cranial Nerves 2-12 intact. Motor strength grossly symmetrical and intact. No sensory loss. Balance normal. Skin: No rashes, ulcers, or lesions noted. Turgor is good. Skin color is good. Hair and nails are without abnormalities. Psych: Normal eye contact, affect and mood appropriate, and normal interactions. Patient is alert and appropriate to context. Results 03/2024 labs reviewed WNL No need to re peat. Discussion Notes The patient and I discussed her overall health status and addressed her past medical conditions during this visit, which was primarily for a complete physical exam. She expressed contentment with her current health and reported no new or worsening symptoms since her last visit. The patient is not pursuing any invasive fertility treatments at this time, choosing instead to pause such interventions temporarily. I advised her to continue with her current counseling for mental health management and to report any changes in her symptoms or medication side effects. Additionally, I encouraged her to ensure her vaccination record is updated in our portal. No new prescriptions or modifications to her current medication regimen were necessary during this visit. Patient was given time to ask questions. All questions were answered to their satisfaction. Assessment and Plan 1. Attention Deficit Hyperactivity Disor linda (ADHD) - Maintain Adderall. Follow-up in three months. 2. Bipolar Disorder - Continue bupropion. Regular counseling ongoing. 3. Infertility - Paused interventions. Monitor psycholo gical impact. 4. 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 5. Eczema - No current action required; monitor fo r changes. Patient Instructions - Continue current medication regimen fo r ADHD and bipolar disorder. - Follow up with counselor routinely. - Report any changes in health or medica tion side effects. - Update vaccination record through port al. - Enjoy vacation and take care of health . RTO 3 MO ADHD MED CHECK, SOONER PRN Consent Patient was informed and verbally consented to the use of an ambient scribe for clinic note documentation during this visit. [facility] Medical History (Updated 04/25/25 @ 08:22 by Johanna Rodriguez, [facility]) ADHD Atypical nevi Eczema History of suicide attempt Surgical History (Updated 04/25/25 @ 07:57 by Christy Cunningham MA) No pertinent past surgical history Family History Mother HTN (hypertension) Ovarian cancer Father HTN (hypertension) Maternal Grandmother Diabetes Cardiovascular disease Maternal Grandfather Diabetes Paternal Grandfather Breast cancer Social History (Updated 10/10/24 @ 08:53 by Saskia Shah CMA) Housing: House Alcohol intake: current Patient Tobacco Use Status: Never used Tobacco e-Cigarette/Vaping Use: Never Used Second Hand Smoke Exposure: No service: No Current occupational status: employed 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 1. Little interest or pleasure in doing things: not at all 2. Feeling down, depressed, or hopeless: not at all 3. Trouble falling or staying asleep, or sleeping too much: not at all 4. Feeling tired or having little energy: not at all 5. Poor appetite or overeating: not at all 6. Feeling bad about yourself - or that you are a failure or have let yourself or your family down: not at all 7. Trouble concentrating on things, such as reading the newspaper or watching television: not at all 8. Moving or speaking so slowly that other people could have noticed. Or the opposite - being so fidgety or restless that you have been moving around a lot more than usual: not at all 9. Thoughts that you would be better off or of hurting yourself in some way: not at all Total score: 0 Depression Screening Interpretation: Negative Depression Screening Done: Yes 19489 - PHQ-9 Billing: Yes Source: Developed by Drs. Isaac Naik, Deidra Barlow, Hardy Conteh and colleagues, with an educational ernesto from [employer]. Thrive Questionnaire Date Thrive assessed: 04/25/25 I am a: Patient What is your living situation today?: I have a steady place to live Within the past 12 months, did the food you bought not last and you didn't have the money to get more?: Never true Within the past 12 months, did you worry whether your food would run out before you got money to buy more?: Never true Do you have trouble paying for medicines?: No Do you have trouble getting transportation to medical appointments?: No Do you have trouble paying your heating and electricity bill?: No Do you have trouble taking care of your child, family member or friend?: No Do you have trouble with day-to-day activities such as bathing, preparing meals, shopping, managing finances, etc.?: No Are you currently unemployed and looking for a job?: No Are you interested in more education?: No Please select the resources that you would like help with: None Currently or been in a relationship where the following occur: No concerns reported THRIVE Score: 0 AUDIT C Alcohol Use Questionnaire (AUDIT-C) 1. How often do you have a drink containing alcohol?: Never 3. How often do you have six or more drinks on one occasion?: Never Total Score: 0 Score Reviewed/Action Taken: Yes LASHELL-7 AMB Questionnaire LASHELL-7 Date LASHELL - 7 assessed: 04/25/25 Feeling nervous, anxious, or on edge: 0 = Not at all Not being able to stop or control worryin = Not at all Worrying too much about different things: 0 = Not at all Trouble relaxin = Not at all Being so restless that it is hard to sit still: 0 = Not at all Becoming easily annoyed or irritable: 0 = Not at all Feeling afraid as if something awful might happen: 0 = Not at all Total LASHELL-7 score (0-4 normal; 5-9 mild; 10-14 moderate; 15-21 severe): 0 Source: Developed by Drs. Isaac Naik, Deidra Barlow, Hardy Conteh and colleagues, with an educational ernesto from [employer]. LASHELL-7 Assessment Billing LASHELL-7 Assessment Tool: LASHELL-7 Assessment 63717 Physical exam (Primary Care) Vital Signs: Last Vital Signs Temp 97.2 F 04/25/25 07:59 Pulse 81 04/25/25 07:59 Resp 12 04/25/25 07:59 BP 122/70 04/25/25 07:59 Pulse Ox 98 04/25/25 07:59 Oxygen Delivery Method Simple Mask 04/25/25 07:59 BMI result Body Mass Index 26.2 Tobacco/Smoking Status: Tobacco use Status Tobacco use date assessed 04/25/25 04/25/25 07:59 Patient Tobacco Use Status Never used Tobacco 04/25/25 07:59 e-Cigarette/Vaping Use Never Used 04/25/25 07:59 PHQ-9: PHQ-9 Score PHQ-9: Total score 0 04/25/25 07:59 Depression Screening Interpretation: Negative Thrive Assessment: Date of Thrive Assessment Date Thrive assessed 04/25/25 04/25/25 07:59 Currently or been in a relationship where the following occur: No concerns reported Coding Level of Care Code Est Pt Prev Care 18-39y([id number]) Diagnoses Encounter for general adult medical examination without abnormal findings Z00.00 Attention deficit hyperactivity disorder (ADHD), predominantly inattentive type F90.0 Attention deficit-hyperactivity disorder type: predominantly inattentive Mild episode of recurrent major depressive disorder F33.0 Major depression episode severity: mild Bipolar 2 disorder F31.81 Epistaxis R04.0 Congenital anisocoria Q13.2 Infertility, female N97.9 Additional Codes LASHELL-7 Assessment Billing - LASHELL-7 Assessment Tool: LASHELL-7 Assessment 09772 ([id number]) PHQ-9 - 81736 - PHQ-9 Billing: Yes ([id number]) Assessment & Plan Assessment & Plan (1) Encounter for general adult medical examination without abnormal findings: Onset Date: ~04/25/25 Code(s): Z00.00 - Encounter for general adult medical examination without abnormal findings Category: Medical (2) ADHD: Comment: . Code(s): F90.9 - Attention-deficit hyperactivity disorder, unspecified type Category: Medical Qualifiers: Attention deficit-hyperactivity disorder type: predominantly inattentive Qualified Code(s): F90.0 - Attention-deficit hyperactivity disorder, predominantly inattentive type (3) MDD (major depressive disorder), recurrent episode: Code(s): F33.9 - Major depressive disorder, recurrent, unspecified Category: Medical Qualifiers: Major depression episode severity: mild Qualified Code(s): F33.0 - Major depressive disorder, recurrent, mild (4) Bipolar 2 disorder: Comment: has been on: [place] depakote, prozac, klonopin, zyprexa lamictal [facility] Nasir Peter DIAMOND SIZER 08/2022, 10/14/23 Code(s): F31.81 - Bipolar II disorder Category: Medical (5) Epistaxis: Comment: RESOLVED Code(s): R04.0 - Epistaxis Category: Medical (6) 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 The purpose of these visits is to: Screen for medical issues Assess your risk for future medical problems Encourage a healthy lifestyle Update vaccinations and other preventive care services Help you get to know your provider in case of an illness Information Even if you feel fine, you should still see your provider for regular checkups. These visits can help you avoid problems in the future. For example, the only way to find out if you have high blood pressure is to have it checked regularly. High blood sugar and high cholesterol levels also may not have any symptoms in the early stages. A simple blood test can check for these conditions. There are specific times when you should see your provider or receive specific health screenings. The [place] Preventive Services Task Force publishes a list of recommended screenings. Below are screening guidelines for women ages 18 to 39. BLOOD PRESSURE SCREENING Your blood pressure should be checked at least once every 3 to 5 years if: Your blood pressure is in the normal range (top number less than 120 mm Hg and bottom number less than 80 mm Hg) You don't have risk factors for high blood pressure Ask your provider if you need your blood pressure checked more often if: The top number is 120 to 129 mm Hg or the bottom number is 70 to 79 mm Hg You have diabetes, heart disease, kidney problems, are overweight, or have certain other health conditions You have a first-degree relative with high blood pressure You are Black You had high blood pressure during a If the top number is 130 mm Hg or greater or the bottom number is 80 mm Hg or greater, this is considered stage 1 hypertension. Schedule an appointment with your provider to learn how you can reduce your blood pressure. Watch for blood pressure screenings in your area. Ask your provider if you can stop in to have your blood pressure checked. BREAST CANCER SCREENING Experts do not agree about the benefits of breast self-exams in finding breast cancer or saving lives. Talk to your provider about what is best for you. A screening mammogram is not recommended for most women under age 40. Your provider may discuss and recommend mammograms, MRI scans, or ultrasounds if you have an increased risk for breast cancer, such as: A mother or sister who had breast cancer at a young age (most often starting screening earlier than the age the close relative was diagnosed) You carry a high-risk genetic marker CERVICAL CANCER SCREENING Cervical cancer screening should start at age 21 years unless your provider advises otherwise. After the first test: Women ages 21 through 29 should have a Pap test every 3 years. Exoprts do not agree on whether HPV testing is recommended for this age group. Women ages 30 through 65 should be screened with either a Pap test every 3 years or the HPV test every 5 years or both tests every 5 years (called cotesting ). Women who have been treated for precancer (cervical dysplasia) should continue to have Pap tests for 20 years after treatment or until age 65, whichever is longer. If you have had your uterus and cervix removed (total hysterectomy), and you have not been diagnosed with cervical cancer or precancer (high grade cervical neoplasia), you do not need cervical cancer screening. CHOLESTEROL SCREENING Cholesterol screening should begin at: Age 45 for women with no known risk factors for coronary heart disease Age 20 for women with known risk factors for coronary heart disease Repeat cholesterol screening should take place: Every 5 years for women with normal cholesterol levels More often if changes occur in lifestyle (including weight gain and diet) More often if you have diabetes, heart disease, kidney problems, or certain other conditions DIABETES SCREENING You should be screened for diabetes starting at age 35 and then repeated every 3 years if you have no risk factors for diabetes. Screening may need to start earlier and be repeated more often if you have other risk factors for diabetes, such as: You have a first degree relative with diabetes. You are overweight or have obesity. You have high blood pressure, prediabetes, or a history of heart disease. Screening for diabetes should be done if you are planning to become and you are overweight and have other risk factors such as high blood pressure. DENTAL EXAM Go to the dentist once or twice every year for an exam and cleaning. Your dentist will evaluate if you need more frequent visits. EYE EXAM Have an eye exam every 5 to 10 years before age 40. If you have vision problems, have an eye exam every 2 years or more often if recommended by your provider. You should have an eye exam that includes an examination of your retina (back of your eye) at least every year if you have diabetes. IMMUNIZATIONS Commonly needed vaccines include: Flu shot: get one every year. COVID-19 vaccine: ask your provider what is best for you. Tetanus-diphtheria and acellular pertussis (Tdap) vaccine: have one at or after age 19 as one of your tetanus-diphtheria vaccines if you did not receive it as an adolescent. Tetanus-diphtheria: have a booster (or Tdap) every 10 years. Varicella vaccine: receive 2 doses if you never had chickenpox or the varicella vaccine. Hepatitis B vaccine: receive 2, 3, or 4 doses, depending on your exact circumstances. Measles, mumps, and rubella (MMR) vaccine: receive 1 to 2 doses if you are not already immune to MMR. Your provider can tell you if you are immune. Ask your provider about the human papillomavirus (HPV) vaccine if: You have not received the HPV vaccine in the past You have not completed the full vaccine series (you should catch up on this shot) Ask your provider if you should receive other immunizations if you have certain health problems that increase your risk for some diseases such as pneumonia. INFECTIOUS DISEASE SCREENING Women who are sexually active should be screened for chlamydia and gonorrhea up until age 25. Women 25 years and older should be screened for chlamydia and gonorrhea if at high risk. Screening for hepatitis C: All adults ages 18 to 79 should get a one-time test for hepatitis C. people should be screened at every . Screening for human immunodeficiency virus (HIV): All people ages 15 to 65 should get a one-time test for HIV. Depending on your lifestyle and medical history, you may also need to be screened for infections such as syphilis and HIV, as well as other infections. PHYSICAL EXAM All adults should visit their provider from time to time, even if they are healthy. The purpose of these visits is to: Screen for disease Assess your risk of future medical problems Encourage a healthy lifestyle Update your vaccinations and other preventive care services Maintain a relationship with a provider in case of an illness Your height, weight, and BMI should be checked at every exam. During your exam, your provider may ask you about: Depression and anxiety Diet and exercise Alcohol and tobacco use Safety issues, such as using seat belts, smoke detectors, and intimate partner violence Your medicines and risk for interactions SKIN SELF-EXAM Your provider may check your skin for signs of skin cancer, especially if you're at high risk, such as if you: Have had skin cancer before Have close relatives with skin cancer Have a weakened immune system OTHER SCREENING Talk with your provider about colon cancer screening if you have a strong family history of colon cancer or polyps, or if you have had inflammatory bowel disease or polyps yourself. Routine bone density screening of women under 40 is not recommended.
[2025-04-25 07:59] VITALS: BP 122/70; PULSE 81; RESP 12; TEMP 36.2; O2SAT 98; BMI 26.2
== END 2025-04-25 08:17 | disposition home or self-care (01) ==
LOC: HO.HMCFM 07:55
PROVIDERS: PCP Nurse Practitioner Family; Visit Provider Nurse Practitioner Family
DX: Z00.00 Encounter for general adult medical examination without abnormal findings (principal); F31.81 Bipolar II disorder; F90.0 Attention-deficit hyperactivity disorder, predominantly inattentive type; R04.0 Epistaxis; Q13.2 Other congenital malformations of iris; N97.9 Female infertility, unspecified

== ENCOUNTER → 2025-04-25 07:54 | Outpatient (BNVA) | payer OTHER, SELFPAY | PROVIDERS: PCP Nurse Practitioner Family; Visit Provider Nurse Practitioner Family | DX: Z00.00 Encounter for general adult medical examination without abnormal findings (principal); F90.0 Attention-deficit hyperactivity disorder, predominantly inattentive type; F31.81 Bipolar II disorder; R04.0 Epistaxis; Q13.2 Other congenital malformations of iris; N97.9 Female infertility, unspecified; Z79.899 Other long term (current) drug therapy | CPT/HCPCS: 96127 ==

== ENCOUNTER 2025-07-29 08:59 | Outpatient (AMB) | payer OTHER, SELFPAY ==
--- NOTE | 2025-07-29 09:01 | MHC.PC.OV ---
Vital Signs 07/29/25 09:07 Height 5 ft 6 in Weight 148 lb 4 oz BMI 23.9 BP 112/68 Blood Pressure Location Lt brachial Position Sitting Respiration 12 Pulse 82 Pulse Source Pulse Oximeter Temp 97.3 F Temp Source Oral Pulse Oximetry (%) 95 Oxygen Delivery Method Room Air Intake Visit Reasons: 3 month adhd fu Intake Note: 3 Month follow up adhd. 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 Allergies No Known Allergies Allergy (Verified 07/29/25 09:10) Medication List - Last Reconciled 07/29/25 by IBETH Oconnor- bupropion HCl XL 300 mg PO DAILY 90 days dextroamphetamine-amphetamine 25 mg ER (Adderall XR) 1 cap PO QAM dextroamphetamine-amphetamine 5 mg 1 tab PO DAILY Tobacco use date assessed: 07/29/25 Dental Screening Dental Screen Date: 07/29/25 Did you have a dental visit in the last 12 months?: Yes Did you have a dental problem in the last 6 months where you did not have access to dental care?: No Was dental information given to patient?: Patient has dentist HPI HPI Comments History of Present Illness Details 34 y/o F with eczema, ADHD, MDD, aniscoria, keloid Right foot, Bipolar, Infertility Surgery:None 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 ADHD, Major Depressive Disorder, and Bipolar Disorder: - The patient is managed on bupropion 300 mg daily, Adderall 25 mg ER daily, and Adderall 5 mg IR as needed, with no adverse events reported. - Her mood has been good and she continues with counseling. - An annual ADHD medication contract was due for renewal. Dysmenorrhea: - The patient reports a new onset of very painful periods, which have been progressively worsening each month. - She uses Midol for the pain. - She notes a family history of ovarian cancer. - She has not had any gynecologic imaging, such as an ultrasound, and her last visit with her GOVERNMENT OPERATIONS CONSULTANT was about a year and a half ago. Epistaxis: - The patient reports a recurrence of nosebleeds, which she associates with wearing a mask at work. Preconception Planning: - The patient and her partner are currently trying to conceive. Weight Management: - The patient reports intentional weight loss over the past three months by reducing sugar, alcohol, and processed carbohydrates. - Her current weight is 148 pounds, down from the 160s, with a goal of returning to her usual weight of 140-145 pounds. - Her appetite remains normal despite the weight loss. Past Medical History - Attention-Deficit Hyperactivity Disorder - Major Depressive Disorder - Bipolar Disorder - History of epistaxis - Family history of ovarian cancer Review of Systems - Constitutional: Reports intentional weight loss. Denies change in appetite. - HEENT: Reports recurrent epistaxis when wearing a mask. - Cardiovascular: Denies swelling in ankles. - Gastrointestinal: Denies constipation. - Genitourinary: Reports new onset of progressively worsening, painful menses. - Psychiatric: Reports good mood. Physical Exam General: Well developed, well nourished, in no acute distress. Appears stated age. Weight is decreased, currently 148 pounds, with intentional weight loss noted. Head: Normocephalic, atraumatic. 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 Vision grossly normal. Lungs: Clear to auscultation bilaterally. No rales, rhonchi or wheeze noted. Good air flow in all colón. Heart: Regular rate and rhythm. No murmurs, click, rubs or gallops are noted. Musculoskeletal: Joints are nontender, without swelling, redness, or effusions. Pulses: Peripheral pulses are equal and palpable bilaterally. Extremities: No clubbing, cyanosis nor edema is noted. Psych: Mood and affect appropriate, mood overall has been good. Medical Decision Making The patient is a 34-year-old female who presented for a routine follow-up of her stable ADHD, major depressive disorder, and bipolar disorder. She continues her regimen of bupropion and Adderall without adverse effects and reports a good overall mood. The annual ADHD medication contract was reviewed and renewed without concerns for misuse. No changes to her psychiatric medications are warranted at this time, with a plan for a 3-month follow-up. The patient raised a new concern of progressively worsening dysmenorrhea. Given her family history of ovarian cancer and the lack of recent gynecologic evaluation or imaging, further workup is indicated. The patient was advised to contact her GOVERNMENT OPERATIONS CONSULTANT for an appointment; if a timely evaluation is not possible, a pelvic ultrasound including transabdominal and transvaginal views will be ordered from this office. For symptomatic management, a trial of naproxen for two weeks prior to menses was recommended. She also noted recurrent epistaxis associated with wearing a mask. She has a prior referral to ENT that should still be valid, and she was instructed to use it and inform me if a new one is needed. 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 Plan 1. Adhd, Major Depressive Disorder, And Bipolar Disorder - The patient's conditions are stable, and she reports a good mood. - Continue bupropion 300 mg daily, Adderall 25 mg ER daily, and Adderall 5 mg IR as needed. - The annual ADHD medication contract was reviewed and resigned. - Continue with counseling. - Follow up for medication management in 3 months. 2. Dysmenorrhea - Patient reports new, progressively painful periods. - Advised to contact her GOVERNMENT OPERATIONS CONSULTANT for an evaluation. - If unable to be seen in a timely manner, a pelvic ultrasound (transabdominal and transvaginal) will be ordered. - Recommended a trial of naproxen taken daily for two weeks prior to menses for symptom relief; the patient has naproxen at home. 3. Epistaxis - Patient reports recurrence of nosebleeds when wearing a mask. - Advised to use her existing ENT referral, which is valid for one year. - Instructed to send a message if she has any issue with the referral so a new one can be placed. 4. Preconception Counseling - Noted patient is currently trying to conceive. Patient Instructions - Continue taking your current medications as prescribed, including bupropion, Adderall ER, and Adderall IR. - We have renewed your annual medication agreement for your ADHD medication. - For your increasingly painful periods, please call your GOVERNMENT OPERATIONS CONSULTANT's office to schedule an appointment. If you cannot get in to see them soon, send me a message, and I will order an ultrasound for you. - To help with period pain, you can try taking naproxen (Aleve) every day for two weeks before your period is due to start. - For the nosebleeds, use the ear, nose, and throat (ENT) doctor referral I gave you before. Let me know if you have any trouble with it. - Please schedule a follow-up appointment in 3 months to check on your medications. Consent A discussion was held regarding a potential future pelvic ultrasound, including both transabdominal and transvaginal views, as a diagnostic step for her dysmenorrhea if she is unable to see her GOVERNMENT OPERATIONS CONSULTANT. The patient expressed comfort and agreement with proceeding with this test under my care if necessary. Patient was informed and verbally consented to the use of an ambient scribe for clinic note documentation during this visit. Total time spent caring for the patient today was 30 minutes. This includes time spent before the visit reviewing the chart, time spent during the visit, and time spent after the visit on documentation, reviewing laboratory results, diagnostic imaging, medications, performing a medically necessary evaluation, counseling on diagnoses, care coordination, ordering appropriate tests, ordering appropriate medications, review of tests performed by other providers, reporting test results with the patient, communication with other healthcare providers. [facility] Medical History (Updated 07/29/25 @ 09:23 by Johanna Rodriguez [facility]) ADHD Atypical nevi Eczema History of suicide attempt Surgical History (Updated 04/25/25 @ 07:57 by Christy Cunningham MA) No pertinent past surgical history Family History Mother HTN (hypertension) Ovarian cancer Father HTN (hypertension) Maternal Grandmother Diabetes Cardiovascular disease Maternal Grandfather Diabetes Paternal Grandfather Breast cancer Social History (Updated 10/10/24 @ 08:53 by Saskia Shah CMA) Housing: House Alcohol intake: current Patient Tobacco Use Status: Never used Tobacco e-Cigarette/Vaping Use: Never Used Second Hand Smoke Exposure: No service: No Current occupational status: employed 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 1. Little interest or pleasure in doing things: not at all 2. Feeling down, depressed, or hopeless: not at all 3. Trouble falling or staying asleep, or sleeping too much: not at all 4. Feeling tired or having little energy: not at all 5. Poor appetite or overeating: not at all 6. Feeling bad about yourself - or that you are a failure or have let yourself or your family down: not at all 7. Trouble concentrating on things, such as reading the newspaper or watching television: not at all 8. Moving or speaking so slowly that other people could have noticed. Or the opposite - being so fidgety or restless that you have been moving around a lot more than usual: not at all 9. Thoughts that you would be better off or of hurting yourself in some way: not at all Total score: 0 Depression Screening Interpretation: Negative Depression Screening Done: Yes 08327 - PHQ-9 Billing: Yes Source: Developed by Drs. Isaac Naik, Deidra Barlow, Hardy Conteh and colleagues, with an educational ernesto from [employer]. Thrive Questionnaire Date Thrive assessed: 07/29/25 I am a: Patient What is your living situation today?: I have a steady place to live Within the past 12 months, did the food you bought not last and you didn't have the money to get more?: Never true Within the past 12 months, did you worry whether your food would run out before you got money to buy more?: Never true Do you have trouble paying for medicines?: No Do you have trouble getting transportation to medical appointments?: No Do you have trouble paying your heating and electricity bill?: No Do you have trouble taking care of your child, family member or friend?: No Do you have trouble with day-to-day activities such as bathing, preparing meals, shopping, managing finances, etc.?: No Are you currently unemployed and looking for a job?: No Are you interested in more education?: No Please select the resources that you would like help with: None Currently or been in a relationship where the following occur: No concerns reported THRIVE Score: 0 LASHELL-7 AMB Questionnaire LASHELL-7 Date LASHELL - 7 assessed: 07/29/25 Feeling nervous, anxious, or on edge: 0 = Not at all Not being able to stop or control worryin = Not at all Worrying too much about different things: 0 = Not at all Trouble relaxin = Not at all Being so restless that it is hard to sit still: 0 = Not at all Becoming easily annoyed or irritable: 0 = Not at all Feeling afraid as if something awful might happen: 0 = Not at all Total LASHELL-7 score (0-4 normal; 5-9 mild; 10-14 moderate; 15-21 severe): 0 Source: Developed by Drs. Isaac Naik, Deidra Barlow, Hardy Conteh and colleagues, with an educational ernesto from [employer]. LASHELL-7 Assessment Billing LASHELL-7 Assessment Tool: LASHELL-7 Assessment 24521 Physical exam (Primary Care) Tobacco/Smoking Status: Tobacco use Status Tobacco use date assessed 04/25/25 04/25/25 07:59 Patient Tobacco Use Status Never used Tobacco 04/25/25 07:59 e-Cigarette/Vaping Use Never Used 04/25/25 07:59 Depression Screening Interpretation: Negative Thrive Assessment: Date of Thrive Assessment Date Thrive assessed 10/10/24 07/22/25 11:58 Currently or been in a relationship where the following occur: No concerns reported Coding Level of Care Code Est Pt Level 4 (66541) Complex EM visit Add On G2211 Diagnoses Attention deficit hyperactivity disorder (ADHD), predominantly inattentive type F90.0 Attention deficit-hyperactivity disorder type: predominantly inattentive Mild episode of recurrent major depressive disorder F33.0 Major depression episode severity: mild Bipolar 2 disorder F31.81 Dysmenorrhea N94.6 Additional Codes LASHELL-7 Assessment Billing - LASHELL-7 Assessment Tool: LASHELL-7 Assessment 96390 ([id number]) PHQ-9 - 65812 - PHQ-9 Billing: Yes ([id number]) Assessment & Plan Assessment & Plan (1) ADHD: Comment: Contract signed/renewed 07/29/25 Patient is aware they are being prescribed a controlled substance. They were educated that this medication does require routine monthly office visits to monitor weight, blood pressure, heart rate and to screen for any signs of abuse or misuse. They were educated that they may be subject to random pill counts and/or U tox screenings. The prescription drug monitoring program we will be monitored at each visit to further screen for signs of abuse or misuse to include filling prescriptions at other physician's offices. The patient should maintain prescription refills of the same local pharmacy and advised the provider of any changes immediately. If at any time there is a concern for abuse or misuse or if there are any signs of side effects such as elevated blood pressure, elevated heart rate or weight loss patient is made aware that this medication will be discontinued. The patient is aware of the above and is willing to proceed. Code(s): F90.9 - Attention-deficit hyperactivity disorder, unspecified type Category: Medical Qualifiers: Attention deficit-hyperactivity disorder type: predominantly inattentive Qualified Code(s): F90.0 - Attention-deficit hyperactivity disorder, predominantly inattentive type (2) MDD (major depressive disorder), recurrent episode: Code(s): F33.9 - Major depressive disorder, recurrent, unspecified Category: Medical Qualifiers: Major depression episode severity: mild Qualified Code(s): F33.0 - Major depressive disorder, recurrent, mild (3) Bipolar 2 disorder: Comment: has been on: [place] depakote, prozac, klonopin, [facility]yprexa [facility] 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
[2025-07-29 09:07] VITALS: BP 112/68; PULSE 82; RESP 12; TEMP 36.3; O2SAT 95; BMI 23.9
== END 2025-07-29 09:22 | disposition home or self-care (01) ==
LOC: HO.HMCFM 09:00
PROVIDERS: PCP Nurse Practitioner Family; Visit Provider Nurse Practitioner Family
DX: F90.0 Attention-deficit hyperactivity disorder, predominantly inattentive type (principal); F33.0 Major depressive disorder, recurrent, mild; F31.81 Bipolar II disorder; N94.6 Dysmenorrhea, unspecified

== ENCOUNTER → 2025-07-29 08:59 | Outpatient (BNVA) | payer OTHER, SELFPAY | PROVIDERS: PCP Nurse Practitioner Family; Visit Provider Nurse Practitioner Family | DX: F31.81 Bipolar II disorder (principal); F90.9 Attention-deficit hyperactivity disorder, unspecified type; N94.6 Dysmenorrhea, unspecified; R04.0 Epistaxis; Z79.899 Other long term (current) drug therapy | CPT/HCPCS: 96127 ==

== ENCOUNTER 2025-08-30 13:13 | Outpatient (AMB) | payer OTHER, SELFPAY ==
--- OUTSIDE RECORDS SUMMARY | 2025-08-29 23:59 | XMS_ITS | Continuity of Care Document ---
Author Organization [facility] Address [address], [address] [place] [address]- Care Team Providers Care Handbook Writer Name Role Phone Not on Staff, PCP Primary Care Physician Unavail able [place]counter [facility] [place] 08/22/25 - 08/29/25 [facility] [address], [address] [place] [address]- Attending Physician: Camille Mejia MD Referring Physician: Jihan ANTHONY, Patience Encounter Type: Office Visit Medications Adderall By Mouth, 2 times a day, 0 Refills, Maintenance, 03/21/24 10:49:00 AM EDT, Partial fill upon patient request if the prescription is for a schedule II opioid drug. Start Date: 03/21/24 Status: Ordered Medication Dispense Status: Completed Total Allowed Fills: 1 Fills Dispensed: 0 Vitamins Vitamins, 0 Refills, Maintenance, 03/21/24 10:49:00 AM EDT Start Date: 03/21/24 Status: Ordered Medication Dispense Status: Completed Total Allowed Fills: 1 Fills Dispensed: 0 Wellbutrin By Mouth, 0 Refills, Maintenance, 03/21/24 10:49:00 AM EDT, Partial fill upon patient request if the prescription is for a schedule II opioid drug. Start Date: 03/21/24 Status: Ordered Medication Dispense Status: Completed Total Allowed Fills: 1 Fills Dispensed: 0 Social History Social History Type Response Sex Sex Representation Female (finding) Imaging * Event Display: [facility] Transvaginal, Complete * Event Display: [facility] CS ASSOCIATE Transvaginal, Complete Authored Date: [id number] Gynecological Report Signed Final 08/22/2025 4:08 PM Patient Info ID: [id number] ALVARO Morrow: CLEMENTINE 08/22/2025 9:19 AM FMRN: Name: Date: [id number] 99 1 (34 y) (F) Performed By Attending: Jacqueline Carney MD Referred By: Meera BRANNON Performed By: Renée Harman RDMS Ref Address: [facility] CODE CLERK Location: CS ASSOCIATE [address] Service(s) Provided Code CS ASSOCIATE Vaginal 49086 (FQB=03059) Indications Code Secondary dysmenorrhea N94.5 Dyspareunia in female N94.10 History ------- Age: 34 P: 0 Day of Cycle: 8 LMP: 08/15/2025 Menses: Dysmenorrhea Uterus ------ Uterus: Present Position: Anteverted Cervix Length: 1.81 cm Size (cm) L: 6.46 W: 3.95 H: 2.9 Volume (ml): 27.89 (Cervix excluded) Description: Ut appears anteverted, normal in contour and echogenicity Endometrium Endometrium: Normal appearance Thickness (mm): 4.5 Cervix ------ Normal appearance and glides freely within the pelvis [place] No fluid was visualized Right Ovary Status: Visualized Size (cm) L: 3.21 W: 2.9 H: 2.14 Vol. (ml):10.43 Morphology: Normal appearance Comment: Glides freely Left Ovary Staus: Visualized Size (cm) L: 3.44 W: 2.12 H: 2.23 Vol.(ml): 8.52 Morphology: Normal appearance Comment: Glides freely Comments -------- Uterus anteverted with normal contours and myometrial echogenicity. Cervix appears within normal limits and glides freely within the pelvis. Endometrium is trilaminar without discrete lesions, within normal limits. Right and left ovary visualized and appear within normal limits. No other adnexal masses seen bilaterally. No free fluid within the cul-de-sac. Impression Unremarkable pelvic ultrasound. Jacqueline Carney MD Electronically Signed Final Report 08/22/2025 4:08 PM * Event Display: [facility] CS ASSOCIATE Transvaginal, Complete Authored Date: [id number] Please click on pdf link to open report Patient Care team information Care Team Personnel Name: Not on Staff, PCP Position: [facility] Physician (General Medicine) Member Role: PCP Care Team Related Persons Name: UZMA SPRING Insurance Providers Guarantor name: ADAN Health Plan Information #: 1 Payer: [facility] PPO Payer Identifier: ADAN Member Number: [id number] Group Number: [id number] Subscriber Identifier: [id number] Relationship to Subscriber: self Coverage Type: Other Private Insurance Coverage Verification Date: ADAN Telecom: ADAN Address:
--- OUTSIDE RECORDS SUMMARY | 2025-08-29 23:59 | XMS_ITS | Continuity of Care Document ---
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 Name Role Phone Not on Staff, PCP Primary Care Physician Unavail able [id number] - 08/29/25 [facility] [address] [place] [address]- Attending Physician: Jacqueline Carney MD Encounter Type: Office Visit Medications Adderall By [...] Type Response Sex Sex Representation Female (finding) Patient Care team information Care Team Personnel Name: Not on Staff, PCP Position[facility] Physician (General Medicine) Member Role: PCP Care Team Related Persons Name: UZMA SPRING Insurance Providers Guarantor name: Health Plan Information #: 1 Payer: [facility] P[facility] Payer Identifier: ADAN Member Number: [id number] Group Number: [id number] Subscriber Identifier: [id number] Relationship to Subscriber: self Coverage Type: Other Private Insurance Coverage Verification Date: Telecom: ADAN Address:
--- NOTE | 2025-08-30 13:15 | A.OFFPC_ITS ---
Vital Signs 3 08/30/25 13:19 Height 5 ft 6 in Weight 147 lb BMI 23.7 BP 100/68 Blood Pressure Location Rt brachial Position Sitting Respiration 12 Pulse 85 Pulse Source Pulse Oximeter Temp 97.6 F Temp Source Oral Pulse Oximetry (%) 99 Oxygen Delivery Method Room Air Intake Visit Reasons: I think I have an inguinal hernia. Intake Note: Patient c/o having px when coughing or lifting x 6 months. Patient thinks she has a hernia. Pediatric Clinical Nurse Specialist Required: No Allergies No Known Allergies Allergy (Verified 08/30/25 13:15) Medication List - Last Reconciled 08/30/25 by Johanna Rodriguez, ADVISOR [employer]- bupropion HCl XL 300 mg PO DAILY 90 days dextroamphetamine-amphetamine 25 mg ER (Adderall XR) 1 cap PO QAM dextroamphetamine-amphetamine 5 mg 1 tab PO DAILY Tobacco use date assessed: 08/30/25 Dental Screening Dental Screen Date: 08/30/25 Did you have a dental visit in the last 12 months?: Yes Did you have a dental problem in the last 6 months where you did not have access to dental care?: No Was dental information given to patient?: Patient has dentist HPI HPI Comments 2 History of Present Illness0 Details 34 y/o F with eczema, ADHD, MDD, aniscor ia, keloid Right foot, Bipolar, Infertility Surgery:None 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 Right groin pain: - The patient reports experiencing a sen sation of a strained muscle in her groin for approximately six months, which has now become persistent pain. 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 - On one occasion while coughing, she fe lt a 'squishy' sensation in the area. - She denies any sensation of needing to manually reduce a bulge. - She denies vomiting but affirms normal urination and bowel movements. 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 Past Medical History - The patient has no history of surgery. Review of Systems - Abdomen: Reports pain in the groin, ex acerbated by coughing and straining. - Genitourinary: Denies issues with urin ation. - Gastrointestinal: Denies vomiting. Rep orts normal bowel movements. Results - Pelvic Ultrasound: A recent pelvic ult rasound ordered by the patient's BRAND STRATEGY MANAGER showed no abnormalities. She was advised to go pelvic floor PT Medical Decision Making The patient is a 34-year-old female presenting with a six-month history of right groin pain, which has become constant and is exacerbated by coughing and straining. She reports feeling a 'squishy' sensation on one occasion, raising concern for a hernia. On physical examination, there was a palpable finding on the right side, possibly a lymph node, which was not present on the left. No obvious hernia was evident, even with Valsalva maneuver. The differential diagnosis includes an inguinal hernia versus reactive lymphadenopathy. Given the ambiguous physical findings and the patient's persistent symptoms, an ultrasound of the soft tissue of the groin is warranted to differentiate between a hernia and lymphadenopathy. This will guide further management, which could range from observation for reactive lymph nodes to a surgical consultation if a hernia is confirmed, though immediate surgical intervention is not anticipated. Plan 1. Right Pelvic Pain - An ultrasound of the soft tissue of th e groin has been ordered to evaluate for a possible hernia versus lymphadenopathy. - If the ultrasound confirms a hernia, a surgical consultation will be considered, although it is not expected to be an urgent surgical case. - If the findings are consistent with re active lymph nodes and other structures are normal, the plan will be to monitor the area. - The patient was instructed to follow u p if the lymph nodes remain prominent. Patient Instructions - An order for an ultrasound of your maia in has been sent to [facility]. - You should call them to schedule the a ppointment; feel free to let them know you need it done sooner rather than later. - The results will be posted to your [facility] portal. I will give you feedback once I receive and review them. - Please let me know if you continue to feel prominent lumps in the area after the ultrasound. Consent Patient was informed and verbally consented to the use of an ambient scribe for clinic note documentation during this visit. [facility] Medical History (Updated 08/30/25 @ 13:44 by [facility]) ADHD Atypical nevi Eczema History of suicide attempt Surgical History (Updated 04/25/25 @ 07:57 by Christy Cunningham MA) No pertinent past surgical history Family History Mother HTN (hypertension) Ovarian cancer Father HTN (hypertension) Maternal Grandmother Diabetes Cardiovascular disease Maternal Grandfather Diabetes Paternal Grandfather Breast cancer Social History (Updated 10/10/24 @ 08:53 by Saskia Shah CMA) Housing: House Alcohol intake: current Patient Tobacco Use Status: Never used Tobacco e-Cigarette/Vaping Use: Never Used Second Hand Smoke Exposure: No service: No Current occupational status: employed 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 Current occupational exposures/hazards: Yes Cognitive needs: No Hearing needs: No Vision needs: No Questionnaire Thrive Questionnaire Date Thrive assessed: 10/10/24 I am a: Patient What is your living situation today?: I have a steady place to live Within the past 12 months, did the food you bought not last and you didn't have the money to get more?: Never true Within the past 12 months, did you worry whether your food would run out before you got money to buy more?: Never true Do you have trouble paying for medicines?: No Do you have trouble getting transportation to medical appointments?: No Do you have trouble paying your heating and electricity bill?: No Do you have trouble taking care of your child, family member or friend?: No Do you have trouble with day-to-day activities such as bathing, preparing meals, shopping, managing finances, etc.?: No Are you currently unemployed and looking for a job?: No Are you interested in more education?: No Please select the resources that you would like help with: None Currently or been in a relationship where the following occur: No concerns reported THRIVE Score: 0 LASHELL-7 AMB Questionnaire LASHELL-7 Date LASHELL - 7 assessed: 07/29/25 Source: Developed by Drs. Isaac Naik, Deidra Barlow, Hardy Conteh and colleagues, with an educational ernesto from [employer]. Physical exam (Primary Care) Vital Signs: Last Vital Signs Temp 97.6 F 08/30/25 13:19 Pulse 85 08/30/25 13:19 Resp 12 08/30/25 13:19 BP 100/68 08/30/25 13:19 Pulse Ox 99 08/30/25 13:19 Oxygen Delivery Method Room Air 08/30/25 13:19 BMI result Body Mass Index 23.7 Tobacco/Smoking Status: Tobacco use Status Tobacco use date assessed 08/30/25 08/30/25 13:16 Patient Tobacco Use Status Never used Tobacco 08/30/25 13:16 e-Cigarette/Vaping Use Never Used 08/30/25 13:16 Thrive Assessment: Date of Thrive Assessment Date Thrive assessed 10/10/24 08/30/25 13:16 Currently or been in a relationship where the following occur: No concerns reported GI Abdomen image: 2 1. soft palpable mobile spongy like abnormality ? lymphnodes vs hernia, increased prominence with valsalva while lying and standing. Overlying skin intact. No appreciable adenopathy on L inguinal area Coding Level of Care Code Est Pt Level 3 (68528) Add On Problem Visit Only Diagnoses Right-sided pelvic pain R10.21 Assessment & Plan Assessment & Plan (1) Right-sided pelvic pain: Code(s): R10.21 - Pelvic and perineal pain right side Category: Medical Plan . Orders: Orders 2 US pelvic limited Today R10.21 - Pelvic and perineal pain right side
[2025-08-30 13:19] VITALS: BP 100/68; PULSE 85; RESP 12; TEMP 36.4; O2SAT 99; BMI 23.7
--- OUTSIDE RECORDS SUMMARY | 2025-08-30 18:50 | XMS_ITS ---
Author Name [facility] Organization Unknown Problems Problem Status Onset Date Problem Type Date of Resoluti on Source Epistaxis active EncounterDiagnosisAct [facility]HC[facility] Nasal vestibulitis active EncounterDiagnosisAct [facility] Deviated nasal septum active EncounterDiagnosisAct HHCCT Encounters Encounter Type Encounter Reason Primary Diagnosis Location Date Ambulatory Nose Bleed Nose Bleed [facility] 08/09/2025 Care Team Organization Name Specialty Phone Email Start Date End Da te [employer] 08/09/2025 [facility] 08/09/2025 [facility] 07/29/2025 [facility] 10/10/2024 12/25/19 25
--- OUTSIDE RECORDS SUMMARY | 2025-08-30 18:50 | XMS_ITS | Clinical Summary ---
Author Organization [facility] Address [address] [place] [id number] Care Team Providers Care Finance Officer Name Role Phone Johanna Rodriguez Dustin KYLE Primary Care Provider + Allergies No known active allergies Medications mupirocin (BACTROBAN) 2 % ointmentIndicatio ns:Nasal vestibulitis Apply topically 2 times a day. 22 g Active Active Problems No known active problems Encounters Date Type Department Care Team Description 08/09/2025 11:45 AM EST Office Visit [facility] [address], [place] [address] Ruel Doran MD Epistaxis (Primary Dx); Nasal vestibulitis; Deviated nasal septum from Last 3 Months Social History Tobacco Use Types Packs/Day Years Used Date Smoking Tobacco: Former Cigarettes 0 Q uit: 09/19/2014 Passive Smoke Exposure: Past Smokeless Tobacco: Never Alcohol Use Standard Drinks/Week Comments Yes 0 (1 standard drink = 0.6 oz pur e alcohol) AUDIT-C Answer Date Recorded Q1: How often do you have a drink containing alc ohol? Monthly or less 08/09/2025 Q2: How many drinks containi ng alcohol do you have on a typical day when you are drinking? 1 or 2 08/09/2025 Frequency of Binge Drinking Not on file 07/21 Comments Unknown Sex and Gender Information Value Date Recorded Sex Assigned at Not on file Legal Sex Female 2:11 AM EST Gender Identity Not on file Sexual Orientation Not on file Last Filed Vital Signs Vital Sign Reading Time Taken Comments Blood Pressure - - Pulse - - Temperature - - Respiratory Rate - - Oxygen Saturation - - Inhaled Oxygen Concentration - - Weight 63.5 kg (140 lb) 08/09/2025 11:44 AM EST Height 167.6 cm (5' 6 ) 08/09/2025 11:44 AM EST Body Mass Index 22.6 08/09/2025 11:44 AM EST Plan of Treatment Upcoming Encounters Date Type Department Care Team (Late st Contact Info) Description 09/16/2025 10:45 AM EST Office Visit [facility] [address] [facility] [place] [address] Ruel Doran MD [address] [facility] [address] [facility] [address] [place] [address] Health Maintenance Due Date Last Done Comments Hepatitis C Virus Screening 1990 HIV Screening 2003 DTaP/Tdap/Td Vaccines (1 - Tdap) 2009 Hepatitis B Vaccines (1 of 3 - 19+ 3-dose series) 2009 Pap Smear (Ages 21-65) 2011 Influenza Vaccine 04/19/2025 COVID-19 Vaccine (1 - 2024-2 6 season) 2025 HPV Vaccines (No Doses Required) Completed Pneumococcal Vaccine: Pediat joselyn (0-5 Years) and At-Risk Patients (6 to 49 Years) Aged Out No longer eligible b ased on patient's age to complete this topic Insurance [facility] Care Teams Finance Officer Relationship Specialty Start Date End Date Johanna Rodriguez APRN [address] [place] [id number] PCP - General Family Medicine 08/09/25
== END 2025-08-30 13:46 | disposition home or self-care (01) ==
LOC: HO.HMCFM 13:14
PROVIDERS: PCP Nurse Practitioner Family; Visit Provider Nurse Practitioner Family
DX: R10.21 Pelvic and perineal pain right side (principal)